=== PATIENT | female | born 2000 ===

== ENCOUNTER 2021-06-20 06:41 | Emergency (ER) | payer SELFPAY | END 2021-06-20 06:45 | disposition left against medical advice (07) | LOC: ED 06:41 | DX: O46.91 Antepartum hemorrhage, unspecified, first trimester (principal); Z53.21 Procedure and treatment not carried out due to patient leaving prior to being seen by health care provider; Z3A.12 12 weeks gestation of pregnancy ==

== ENCOUNTER 2021-08-22 13:46 | Emergency (ER) | payer SELFPAY ==
[2021-08-22 14:47] VITALS: BP 115/68
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
== END 2021-08-22 16:49 | disposition home or self-care (01) ==
LOC: ED 13:46
DX: S00.81XA Abrasion of other part of head, initial encounter (principal); S50.812A Abrasion of left forearm, initial encounter; V87.7XXA Person injured in collision between other specified motor vehicles (traffic), initial encounter; Y93.89 Activity, other specified; Y92.488 Other paved roadways as the place of occurrence of the external cause; Y99.8 Other external cause status; Z88.2 Allergy status to sulfonamides; Z88.8 Allergy status to other drugs, medicaments and biological substances; Z72.89 Other problems related to lifestyle; Z79.899 Other long term (current) drug therapy
CPT/HCPCS: 99282